=== PATIENT | female | born 1960 | race Caucasian/White ===

== ENCOUNTER 2021-09-01 11:26 | Outpatient (CLI) | payer OTHER | END 2021-09-01 11:27 | disposition critical access hospital (66) | LOC: EMS 11:26 | DX: R55 Syncope and collapse (principal); R53.1 Weakness | CPT/HCPCS: A0425; A0427 ==

== ENCOUNTER 2021-09-01 11:39 | Emergency (ER) | payer OTHER ==
--- NOTE | 2021-09-01 11:49 | ED Physician Documentation ---
PD HPI SYNCOPE - Stated complaint Stated Complaint: ABD PX - History obtained from History obtained from: Patient, EMS - Additional information Additional information: 61-year-old woman who is visiting from [place]. She has a history of h ypertension on lisinopril and hydrochlorothiazide and is on fluoxetine as well. She is camping here locally and had some adult beverages last night. This morning she woke up and she was sitting at a picnic table at the campsite and started to feel generally weak and lightheaded and fuzzy. After a few minutes she felt like she had to have a bowel movement and got up to make her way to the Toilet but did not make it and became incontinent of otherwise normal stool. Then she started to hyperventilate and developed carpopedal spasms and peripheral numbness. At this point she feels back to normal. At no point was there any chest pain or trouble breathing. No history of heart problems. Review of Systems Ten Systems: 10 systems reviewed and negative Constitutional: denies: Fever, Chills, Fatigue Cardiac: denies: Chest pain / pressure, Palpitations Respiratory: denies: Dyspnea, Cough PD PAST MEDICAL HISTORY - Allergies Allergies/Adverse Reactions: Allergies Allergy/AdvReac Type Severity Reaction Status Date / Time codeine Allergy Unknown Verified 09/01/21 12:30 PD ED PE NORMAL - Vitals Vital signs reviewed: Yes - General General: Alert and oriented X 3, No acute distress - HEENT HEENT: PERRL, EOMI - Neck Neck: Supple, no meningeal sign, No bony TTP - Cardiac Cardiac: RRR, No murmur - Respiratory Respiratory: No respiratory distress, Clear bilaterally - Abdomen Abdomen: Soft, Non tender - Derm Derm: Normal color, Warm and dry - Extremities Extremities: No edema, No calf tenderness / cord - Neuro Neuro: Alert and oriented X 3, Normal speech Eye Opening: Spontaneous Motor: Obeys Commands Verbal: Oriented GCS Score: 15 Results - Vitals Vitals: Vital Signs - 24 hr 09/01/21 09/01/21 11:51 12:40 Temperature 36.6 C Heart Rate 74 83 Respiratory 18 19 Rate Blood Pressure 133/66 H 135/69 H O2 Saturation 99 100 Oxygen O2 Source Room air - EKG (time done) 1207 Rate: Rate (enter#) (74) Rhythm: NSR [place]: Normal Intervals: Normal [place] Ischemia: Non specific changes (Large R in V1). No: ST elevation c/w ischemia, ST depression Computer interpretation: Agree with computer - Labs Labs: Laboratory Tests 09/01/21 09/01/21 11:50 11:50 WBC 7.9 RBC 3.88 L Hgb 12.9 Hct 36.0 L MCV 92.8 MCH 33.2 H MCHC 35.8 RDW 11.6 L Plt Count 285 MPV 8.2 Neut # (Auto) 6.0 Lymph # (Auto) 1.3 L [place] # (Auto) 0.4 Eos # (Auto) 0.1 Baso # (Auto) 0.0 Absolute Nucleated RBC 0.00 Nucleated RBC % 0.0 Sodium 128 L Potassium 3.2 L Chloride 93 L Carbon Dioxide 24 Anion Gap 11.0 BUN 13 Creatinine 1.2 H Estimated GFR (MDRD) 46 L Glucose 129 H Calcium 9.6 Magnesium 1.7 Total Bilirubin 0.6 AST 25 ALT 21 Alkaline Phosphatase 46 Total Protein 7.7 Albumin 4.7 Globulin 3.0 Albumin/Globulin Ratio 1.6 PD MEDICAL DECISION MAKING - ED course ED course: 61-year-old woman had been drinking last night and woke up this morning and had a dizzy spell without syncope. She became incontinent of stool but she knew she had to go and just did not make it to the bathroom. Subsequently had what sounds like a panic attack. Now feeling completely back to normal. Work-up demonstrating fairly benign findings, modestly low sodium and potassium, We discussed the need for follow-up for this, potassium was repleted orally. She is on hydrochlorothiazide which may be related to These electrolyte abnormalities,or it may be related to heavy drinking s last night. Departure - Departure Disposition: 01 Home, Self Care Clinical Impression: Pre-syncope, Hypokalemia, Hyponatremia Condition: Stable Instructions: Hypokalemia Dc, ED Near Syncope Unkn Comments: You are seen today for an episode of lightheadedness. Everything is looking okay except for borderline low potassium and sodium which may be related to your hydrochlorothiazide or from drinking last night. You need to follow-up with your primary care physician, next Available appointment. Take it easy the rest of the day and rest. Return for new or worsening symptoms. For your records and follow-up purposes, specifically: Your sodium was 128 Potassium 3.2 Discharge Date/Time: 09/01/21 12:42
[2021-09-01 12:00] LABS: BASOPHILS % (AUTO) 0.5 %; EOSINOPHILS # (AUTO) 0.1 10^3/uL (0.0-0.7); EOSINOPHILS % (AUTO) 0.8 %; HGB - HEMOGLOBIN 12.9 g/dL (12.0-16.0); LYMPHOCYTES # (AUTO) 1.3 10^3/uL (1.5-3.5); MEAN CORPUSCULAR HEMOGLOBIN 33.2 pg (27.0-31.0); MEAN CORPUSCULAR HGB CONC 35.8 g/dL (32.0-36.0); MEAN CORPUSCULAR VOLUME 92.8 fL (81.0-99.0); MEAN PLATELET VOLUME 8.2 fL (7.9-10.8); MONOCYTES # (AUTO) 0.4 10^3/uL (0.0-1.0); MONOCYTES % (AUTO) 4.6 %; NEUTROPHILS % (AUTO) 76.7 %; PLT - PLATELET COUNT 285 10^3/uL (130-450); RED BLOOD COUNT 3.88 10^6/uL (4.20-5.40); RED CELL DISTRIBUTION WIDTH 11.6 % (12.0-15.0); WHITE BLOOD COUNT 7.9 x10^3/uL (4.8-10.8)
[2021-09-01 12:15] LABS: ALBUMIN 4.7 g/dL (3.2-5.5); ALBUMIN/GLOBULIN RATIO 1.6 (1.0-2.2); BILIRUBIN,TOTAL 0.6 mg/dL (0.2-1.0); CALCIUM 9.6 mg/dL (8.5-10.3); CREATININE 1.2 mg/dL (0.4-1.0); MAGNESIUM 1.7 mg/dL (1.7-2.8); POTASSIUM 3.2 mmol/L (3.5-5.0); TOTAL PROTEIN 7.7 g/dL (6.7-8.2)
[2021-09-01] MEDS ORDERED: POTASSIUM CHLORIDE 20 MEQ TABLET PO STA (12:17)
[2021-09-01 12:42] VITALS: BP 135/69
== END 2021-09-01 12:42 | disposition home or self-care (01) ==
LOC: ED 11:39
DX: R55 Syncope and collapse (principal); E87.6 Hypokalemia; E87.1 Hypo-osmolality and hyponatremia
CPT/HCPCS: 36415; 80053; 83735; 85025; 93005; 99283; 99284; A9270